=== PATIENT | male | born 1985 | race Caucasian/White ===

== ENCOUNTER 2017-02-19 21:51 | Inpatient (IN) | payer BC, OTHER ==
[~2017-02-19] VITALS: Ht 182.9 cm; Wt 81.6 kg
--- NOTE | 2017-02-20 03:55 | NUR ---
Admission note Pt is a 31 yo male, A+Ox4, presenting to [facility] for Opiate/Meth dependence. Pt is 6'0" in height and 180 LBS. in weight. Pt has NKA, is Full Code status and on Regular diet. Pt has Medical HX of Hypothyroidism and Bipolar disorder. Pt has no family medical/substance abuse HX to report. Pt has a primary care provider by the name of "Dr. Jane" and a primary psychiatrist by the name of "Dr. Hay". Pt has been using Heroin IV for 8 years, has reached a level of 1gm/daily, and last dose was 0.3gm on 02-20-17 @0300. Pt has been using Methamphetamine IV for 9 years, has reached a level of 0.5gm-1gm/daily, and last dose was 0.2gm on 02-19-17 @1500. Pt has been taking the following home medications: [place] 1200mg QAM, Synthroid 75mcg QAM, and last dose was taken 02-03-17 for both medications. Pt has previous HX of Detox/Rehab for 30 days @ [facility] in [place], [place] in 2016. This was the Pt's last time sober. Pt has been a cigarette smoker for 13 years and has reached a level of 20/daily. Pt states that he also "Vapes". Pt appears mildly intoxicated upon admission but stable. V/S WNL. No s/s of distress noted at this time. Respirations even and unlabored. Will continue to monitor.
[2017-02-20] MEDS ORDERED: ACETAMINOPHEN 325 MG TABLET PO PRN (04:45)
[2017-02-20] MEDS ORDERED: CLONIDINE HCL 0.1 MG TABLET PO PRN (04:45)
[2017-02-20] MEDS ORDERED: MAG HYDROX/AL HYDROX/SIMETH 30 ML LIQUID UDC PO PRN (04:45)
[2017-02-20] MEDS ORDERED: DICYCLOMINE HCL 20 MG TABLET PO PRN (04:45)
[2017-02-20] MEDS ORDERED: IBUPROFEN 400 MG TABLET PO PRN (04:45)
[2017-02-20] MEDS ORDERED: MAGNESIUM HYDROXIDE 30 ML LIQUID UDC PO PRN (04:45)
[2017-02-20] MEDS ORDERED: ONDANSETRON ODT 4 MG TAB.RAPDIS SL PRN (04:45)
[2017-02-20] MEDS ORDERED: BUPRENORPHINE HCL 2 MG TAB.SUBL SL PRN (04:45)
[2017-02-20] MEDS ORDERED: diphenhydrAMINE 50 MG CAPSULE PO PRN (04:45)
[2017-02-20] MEDS ORDERED: LOPERAMIDE HCL 2 MG CAPSULE PO PRN ×2 (04:45)
[2017-02-20 04:53] VITALS: BP 120/74
[2017-02-20 04:56] LABS: *AMPHETAMINE, URINE POSITIVE (NEGATIVE); *BARBITURATE, URINE NEGATIVE (NEGATIVE); *CANNABINOID, URINE NEGATIVE (NEGATIVE); *COCCAINE, URINE NEGATIVE (NEGATIVE); *OPIATE, URINE POSITIVE (NEGATIVE); *PHENCYCLIDINE SCREEN,URINE NEGATIVE (NEGATIVE)
[2017-02-20] MEDS ORDERED: LITH300C2 PO (06:25)
[2017-02-20] MEDS ORDERED: LEVO75TA PO (06:25)
[2017-02-20] MEDS ORDERED: CHOL400T41 PO (06:35)
[2017-02-20] MEDS ORDERED: MULT-1176 PO (06:35)
[2017-02-20] MEDS ORDERED: [UNRECOGNIZED DRUG - CODE] TP (06:35)
[2017-02-20] MEDS ORDERED: [UNRECOGNIZED DRUG - CODE] TP (06:35)
[2017-02-20] MEDS ORDERED: [UNRECOGNIZED DRUG - CODE] TP (06:35)
[2017-02-20] MEDS ORDERED: IBUP-66 PO (06:35)
[2017-02-20] MEDS ORDERED: [UNRECOGNIZED DRUG - CODE] MC (06:35)
--- NOTE | 2017-02-20 07:24 | NUR ---
End of shift note Pt is a 31 yo male, A+Ox4, presenting to [facility] for Opiate/Meth dependence. Pt is 6'0" in height and 180 LBS. in weight. Pt has NKA, is Full Code status and on Regular diet. Pt has Medical HX of Hypothyroidism and Bipolar disorder. Pt has no family medical/substance abuse HX to report. Pt has a primary care provider by the name of "Dr. Jane" and a primary psychiatrist by the name of "Dr. Hay". Pt has been using Heroin IV for 8 years, has reached a level of 1gm/daily, and last dose was 0.3gm on 02-20-17 @0300. Pt has been using Methamphetamine IV for 9 years, has reached a level of 0.5gm-1gm/daily, and last dose was 0.2gm on 02-19-17 @1500. Pt has been taking the following home medications: [place] 1200mg QAM, Synthroid 75mcg QAM, and last dose was taken 02-03-17 for both medications. Pt has previous HX of Detox/Rehab for 30 days @ [facility] in [place], [place] in 2016. This was the Pt's last time sober. Pt has been a cigarette smoker for 13 years and has reached a level of 20/daily. Pt states that he also "Vapes". Pt did not sleep since admission. Last COWS: 1 @0500. No s/s of distress noted at this time. Respirations even and unlabored. Will continue to monitor.
[2017-02-20 08:00] VITALS: BP 109/67
--- NOTE | 2017-02-20 08:15 | NUR ---
START OF SHIFT: RECEIVED PT A/O X 4. PT STATES HE SLEPT VERY LITTLE LAST NIGHT HE WAS ADMITTED IN THE MIDDLE OF THE NIGHT. HE STATES HE IS NOT FEELING TOO BAD OF YET. PPD PLANTED TO [facility]. COWS 6. HE REPORTS SOME MILD BODY ACHES,SLIGHT CHILLS AND RESTLESSNESS. HE ALSO REPORTS FATIGUE. NO TAPER ORDERED OF YET. MD TO ASSESS PT THIS AM. WILL CONTINUE TO MONITOR AND PROVIDE SAFE AND SUPPORTIVE ENVIRONMENT.
[2017-02-20 08:18] LABS: BASOPHILS % (AUTO) 0.4 % (0.0-2.0); EOSINOPHILS # (AUTO) 0.1 K/uL (0.0-0.7); EOSINOPHILS % (AUTO) 0.6 % (0.0-7.0); HEMATOCRIT 45.4 % (40.0-50.0); HEMOGLOBIN 15.3 g/dL (14.0-18.0); LYMPHOCYTES # (AUTO) 0.9 K/uL (0.8-4.8); LYMPHOCYTES % (AUTO) 7.6 % (20.5-51.5); MEAN CORPUSCULAR HEMOGLOBIN 30.6 uug (27.0-31.0); MEAN CORPUSCULAR HGB CONC 34 g/dL (32.0-37.0); MONOCYTES # (AUTO) 0.7 K/uL (0.1-1.30); MONOCYTES % (AUTO) 6.1 % (0.0-11.0); NEUTROPHILS # (AUTO) 10.2 K/uL (1.8-8.9); NEUTROPHILS % (AUTO) 85.3 % (38.5-71.5); PLATELET COUNT (AUTO) 281 K/uL (150-450); RED BLOOD CELL COUNT(AUTO) 4.98 MIL/uL (4.70-6.10); RED CELL DISTRIBUTION WIDTH 11.4 % (11.5-14.5); WHITE BLOOD COUNT (AUTO) 11.9 K/uL (4.0-11.2)
[2017-02-20 08:45] LABS: ETHANOL < 3 MG/DL (0-0)
[2017-02-20 08:52] LABS: ALANINE AMINOTRANSFERASE 33 U/L (16-63); ALBUMIN 3.8 g/dL (3.4-5.0); ALKALINE PHOSPHATASE 72 U/L (50-136); ASPARTATE AMINOTRANSFERASE 81 U/L (15-37); BILIRUBIN,TOTAL 0.5 mg/dL (0.2-1.0); CARBON DIOXIDE 31 mmol/L (21-32); CHLORIDE 99 mmol/L (98-107); CREATININE 1.3 mg/dL (0.6-1.3); GFR 65 mL/min (>60); GLUCOSE 96 mg/dL (74-106); MAGNESIUM 1.8 mg/dL (1.8-2.4); POTASSIUM 4.1 mmol/L (3.5-5.1); SODIUM SERUM 137 mmol/L (136-145); TOTAL PROTEIN, SERUM 7.7 g/dL (6.4-8.2); UREA NITROGEN, BLOOD 7 mg/dL (7-18)
[2017-02-20] MEDS ORDERED: TUBERCULIN,PURIF.PROT.DERIV. 5 TU/0.1 ML TEST ID ONE (09:00)
[2017-02-20] MEDS: MULTIVITAMINS,THERAPEUTIC TABLET PO SCH (09:03)
[2017-02-20 09:05] LABS: THYROID STIMULATING HORMONE 3.277 mIU/mL (0.358-3.740)
[2017-02-20 09:19] LABS: HIV-1 p24 ANTIGEN NON REACTIVE (NONREACTIVE); HIV-1/2 ANTIBODY NON REACTIVE (NONREACTIVE)
[2017-02-20 10:14] LABS: BAND % (MANUAL) 6 % (0-10); BASOPHILS % (MANUAL) 1 % (0-2); LYMPHOCYTES % (MANUAL) 7 % (20-40); MONOCYTES % (MANUAL) 8 % (2-10); NEUTROPHILS % (MANUAL) 78 % (42-75)
[2017-02-20 10:15] LABS: PLATELET ESTIMATE ADEQUATE
[2017-02-20 12:00] VITALS: BP 104/55
[2017-02-20] MEDS: LITHIUM CARBONATE 300 MG CAPSULE PO SCH ×2 (12:24→20:20)
[2017-02-20 16:00] VITALS: BP 110/74
--- NOTE | 2017-02-20 17:47 | NUR ---
COWS DEFERRED PT IS SLEEPING/ RESPIRATIONS EVEN AND UNLABORED. BED LOCKED AND IN LOWEST POSITION. CALL BALL IN REACH. WILL CONTINUE TO MONITOR.
--- NOTE | 2017-02-20 18:46 | NUR ---
END OF SHIFT: PT CONTINUES ON PRNS. HE REPORTED FATIGUE AND DENIED S/S OF W/D IN AM. NOON COWS 5. HE SLEPT MOST OF SHIFT AND NO PRNS GIVEN. PPD PLANTED TO [facility]. ENCOURAGED INCREASED FLUIDS TODAY AND REST. WILL PASS SHIFT REPORT TO ONCOMING NURSE.
[2017-02-20 20:00] VITALS: BP 114/78
--- NOTE | 2017-02-20 20:00 | NUR ---
1999 Patient received sleeping soundly in -like position of comfort. Patient aroused for nurse assess and vital signs. Patient responds to nurse's greeting and introduction with soft, slightly delayed, " Hi, I feel okay" Patient's color is pink and his skin is warm, dry and and intact. Patient's lung sounds are clear bilaterally and active bowel sounds are noted x 4 abdominal Quads, per auscultation. Patient denies any pain or other discomforts and he offers no requests at this time. Vital signs are: 98-77-16 114/78, O2 Sat 100%, COWS 2. Fluids and small amounts of his regular dinner tray taken slowly. Patient can move all his extremities fully WNL, though slowly. Patient was admitted on 02/20/17 for: Heroin and Methamphetamine withdrawal and he is presently on PRN medications only. Patient is overall cooperative, though he presents a bit tired-looking and sleepy. He is verbally appropriate though affect flat, slightly withdrawn presently. Bed is locked and in lowest position, bed rails are up X 2 and call light within patient's easy reach.
[2017-02-21] VITALS: BP 110/72
[2017-02-21 04:00] VITALS: BP 112/72
--- NOTE | 2017-02-21 06:30 | NUR ---
0630 Patient slept a total of 10.5 hours and he had 1 void and no stools. Total intake was 500 ml p.o. No prn medications given this shift. V/SS afebrile, COWS 2. Patient is presently resting comfortably with eyes closed and respirations regular, unlabored at 14. Patient is in stable condition at this time.
[2017-02-21 08:00] VITALS: BP 113/74
--- NOTE | 2017-02-21 08:00 | NUR ---
START OF SHIFT RECEIVED PT AOX4. PT STATES HE SLEPT ALL DAY YESTERDAY AND ALL LAST NIGHT AND FEELS RESTED NOW. COWS 3 THIS AM. PT APPEARS WITH BLUNTED AFFECT AND SUBDUED MOOD. HE REPORTS HE HAS BEEN SWEATY AND HAS MILD ANXIETY. ENCOURAGED GROUP ACTIVITY TODAY TO DECREASE ANXIOUSNESS. NO PRNS GIVEN LAST NIGHT PER [facility]. WILL CONTINUE TO MONITOR PT AND PROVIDE SAFE AND SUPPORTIVE ENVIRONMENT.
[2017-02-21] MEDS: LITHIUM CARBONATE 300 MG CAPSULE PO SCH ×2 (09:29→21:49)
[2017-02-21] MEDS: MULTIVITAMINS,THERAPEUTIC TABLET PO SCH (09:29)
[2017-02-21] MEDS: PATIENT MAY USE OWN MED- MD OK TOP SCH ×4 (10:15)
[2017-02-21] MEDS: HYDROXYZINE PAMOATE 25 MG CAPSULE PO PRN (10:26)
[2017-02-21] MEDS: METHOCARBAMOL 750 MG TABLET PO PRN (10:26)
--- NOTE | 2017-02-21 10:37 | NUR ---
PRN CLONIDINE,VISTARIL,ROBAXIN AND BENTYL GIVEN FOR NEW S/S OF W/D WHICH INCLUDE MUSCLE ACHES,CHILLS,SWEATS AND STOMACH UPSET. WILL MONITOR EFFECTIVENESS
--- NOTE | 2017-02-21 11:39 | NUR ---
PT STATES PRN MEDS WERE EFFECTIVE IN REDUCING S/S OF W/D
[2017-02-21 12:00] VITALS: BP 116/74
[2017-02-21] MEDS: LEVOTHYROXINE SODIUM 75 MCG TABLET PO SCH (12:07)
[2017-02-21] MEDS: CHOLECALCIFEROL 400 UNITS TABLET PO SCH (12:08)
[2017-02-21 16:00] VITALS: BP 122/70
--- NOTE | 2017-02-21 18:43 | NUR ---
END OF SHIFT PT CONTINUES ON OBSERVATION WITH PRNS AVAILABLE FOR S/S OF W/D. HE WAS GIVEN PRN CLONIDINE, VISTARIL, ROBAXIN AND BENTYL THIS SHIFT FOR S/S OF W/D WITH EFFECTIVENESS. LAST COWS 3. PT ATTENDED GROUP TODAY AND SOCIALIZED WITH PEERS.PT VITALS REMAIN WNL. ENCOURAGED PT TO INFORM NURSING STAFF OF ANY DISCOMFORT. PT IS RESTING NOW. BED IN LOWEST POSITION AND CALL BALL IN REACH. WILL PASS REPORT TO NIGHT NURSE.
--- NOTE | 2017-02-21 19:45 | NUR ---
START OF SHIFT Received report from day shift nurse. Pt is lying in bed watching TV. He is a 31 yo male admitted to [facility] on 02/20 for opiate dependence with a h/o methamphetamine use. He is A&O x4 and ambulatory. NKA, full code status, and on a regular diet. He has a PMH of hypothyroidism and bipolar. On admission he admitted to using heroin 1 gram per day for 8 years and methamphetamine 0.5-1 gram per day for 9 years. He is ordered PRN medications for the management of withdrawal symptoms. He reports runny nose and hot flashes. Fall precautions ordered. Bed is down with call light in reach.
[2017-02-21 20:00] VITALS: BP 124/69
--- NOTE | 2017-02-21 20:08 | NUR ---
CLARIFICATION OF ORDERS Contacted Dr. Reddy for clarification of Inland level orders. Per Dr. Reddy, Inland level is to be drawn 02/23/17 at 0800.
--- NOTE | 2017-02-21 21:15 | NUR ---
PRN Ativan administration Pt is noted to be sweating and with hand tremors. He reports that he "feels uneasy". CIWA score 7. PRN Ativan administered Addendum: 02/22/17 at 0108 by JULIAN CRUZ RN Disregard note. Incorrect patient.
--- NOTE | 2017-02-21 21:50 | NUR ---
PRN Benadryl Pt c/o inability to sleep. PRN Benadryl administered.
[2017-02-22] VITALS: BP 120/66
[2017-02-22] MEDS: METHOCARBAMOL 750 MG TABLET PO PRN (02:19)
[2017-02-22] MEDS: HYDROXYZINE PAMOATE 25 MG CAPSULE PO PRN ×2 (02:20→21:41)
--- NOTE | 2017-02-22 02:20 | NUR ---
PRN Robaxin and Vistaril Pt reports bilateral shoulder aches 5/10, feeling anxious, restless, and unable to fall asleep. He states, "it's withdrawals". COWS score is 6. PRN Robaxin and Vistaril administered.
--- NOTE | 2017-02-22 03:30 | NUR ---
PRN Robaxin and Vistaril reassessment PRN Vistaril effective. Pt reports feeling more relaxed and less anxious but sill unable to fall asleep due to continued shoulder pain. PRN Robaxin mildly effective.
--- NOTE | 2017-02-22 03:50 | NUR ---
PRN Motrin administration Pt reports continued right shoulder pain. Robaxin provided only some relief. PRN Motrin administered.
[2017-02-22 04:00] VITALS: BP 120/74
--- NOTE | 2017-02-22 04:50 | NUR ---
PRN Ibuprofen reassessment PRN Ibuprofen effective. Pt is lying in bed resting comfortably with eyes closed. Respirations even and unlabored. Bed is down with call light in reach.
[2017-02-22] MEDS: LEVOTHYROXINE SODIUM 75 MCG TABLET PO SCH (06:58)
--- NOTE | 2017-02-22 07:13 | NUR ---
END OF SHIFT Report provided to day shift nurse. Pt is lying in bed watching TV. He is a 31 yo male admitted to [facility] on 02/20 for opiate dependence with a h/o methamphetamine use. He is A&O x4 and ambulatory. NKA, full code status, and on a regular diet. He has a PMH of hypothyroidism and bipolar. On admission he admitted to using heroin 1 gram per day for 8 years and methamphetamine 0.5-1 gram per day for 9 years. PRN medications ordered for management of withdrawals. Pt reported shoulder pain r/t withdrawals. PRN Benadryl, Robaxin, Vistaril and Ibuprofen administered. Last COWS 6. He drank 1500mL and slept for 3 hours. Fall precautions ordered. Bed is down with call light in reach.
[2017-02-22 08:00] VITALS: BP 117/62
--- NOTE | 2017-02-22 08:30 | NUR ---
START OF SHIFT: RECEIVED PT THIS AM AOX4. PT IN BED STATES HE DID NOT SLEEP WELL LAST NIGHT AND ONLY SLEPT ABOUT 3 HRS. PT GIVEN PT BENADRYL, ROBAXIN, IBUPROFEN AND VISTARIL LAST NIGHT BY NIGHT NURSE AND PT STATES HE FELT RELIEF AFTER. PT C/O RIGHT SHOULDER ACHES R/T W/D AND SLIGHT ANXIETY. COWS 3. PT CONTINUES ON PRNS..ENCOURAGED GROUP ACTIVITY TODAY AND ENCOURAGED PT TO NOTIFY NURSE IF MUSCLE ACHES WORSEN. WILL CONTINUE TO MONITOR.
[2017-02-22] MEDS: MULTIVITAMINS,THERAPEUTIC TABLET PO SCH (08:50)
[2017-02-22] MEDS: PATIENT MAY USE OWN MED- MD OK TOP SCH ×4 (08:50→08:51)
[2017-02-22] MEDS: CHOLECALCIFEROL 400 UNITS TABLET PO SCH (08:50)
[2017-02-22] MEDS: LITHIUM CARBONATE 300 MG CAPSULE PO SCH ×2 (08:50→21:16)
[2017-02-22 12:00] VITALS: BP 129/76
[2017-02-22 16:00] VITALS: BP 124/84
--- NOTE | 2017-02-22 18:36 | NUR ---
END OF SHIFT PT CONTINUES ON OBSERVATION WITH PRNS AVAILABLE FOR S/S OF W/D. NO PRNS NEEDED THIS SHIFT. LAST COWS 1. PT ATTENDED GROUP TODAY AND SOCIALIZED WITH PEERS. PT DC PLANNED FOR TOMORROW. UDS COLLECTED. ENCOURAGED PT TO INFORM NURSING STAFF OF ANY DISCOMFORT. PT IS RESTING NOW. ALL NEEDS MET. BED IN LOWEST POSITION AND CALL BALL IN REACH. WILL PASS REPORT TO NIGHT NURSE.
[2017-02-22] MEDS ORDERED: CLON0.1T14 PO (19:04)
[2017-02-22] MEDS ORDERED: DICY20TA28 PO (19:04)
[2017-02-22] MEDS ORDERED: METH-33 PO (19:04)
[2017-02-22] MEDS ORDERED: HYDR-3895 PO (19:04)
[2017-02-22 20:00] VITALS: BP 132/77
--- NOTE | 2017-02-22 20:00 | NUR ---
START OF SHIFT Received report from day shift nurse. Pt is lying in bed watching TV. He is a 31 yo male admitted to [facility] on 02/20 for opiate dependence with a h/o methamphetamine use. He is A&O x4 and ambulatory. NKA, full code status, and on a regular diet. He has a PMH of hypothyroidism and bipolar. On admission he admitted to using heroin 1 gram per day for 8 years and methamphetamine 0.5-1 gram per day for 9 years. He is ordered PRN medications for the management of withdrawal symptoms and scheduled for discharge tomorrow. Minimal s/s of withdrawal noted. Pt states he feels ready for discharge. Fall precautions ordered. Bed is down with call light in reach.
[2017-02-22] MEDS ORDERED: TRAZODONE 50 MG TABLET PO PRN (21:30)
--- NOTE | 2017-02-22 21:45 | NUR ---
PRN Vistaril and Trazodone Pt c/o feeling anxious and unable to sleep. Benadryl administered last night was not effective. Contacted Dr. Morrow. Orders received for Trazodone. PRN Vistaril and Trazodone administered.
[2017-02-22] MEDS ORDERED: TRAZODONE 50 MG TABLET ONE (21:47)
--- NOTE | 2017-02-22 22:45 | NUR ---
PRN Vistaril and Trazodone reassessment PRN Vistaril and Trazodone effective. Pt is lying in bed resting with eyes closed. Respirations even and unlabored.
--- NOTE | 2017-02-23 | NUR ---
0000 Vitals and COWS deferred Pt refused to be woken for 0000 Vitals. Respirations even and unlabored. Bed is down with call light in reach.
--- NOTE | 2017-02-23 04:00 | NUR ---
0400 Vitals and COWS deferred Pt refused to be woken for 0400 Vitals. Respirations even and unlabored. Bed is down with call light in reach.
[2017-02-23 04:06] LABS: HEPATITIS B CORE AB, IgM Negative (Negative); HEPATITIS B SURFACE AG Negative (Negative)
[2017-02-23] MEDS: LEVOTHYROXINE SODIUM 75 MCG TABLET PO SCH (06:58)
--- NOTE | 2017-02-23 07:10 | NUR ---
Start of shift note SBAR report rcv'd. Pt was admitted for observation of withdrawal from opiates and methamphetamine. Pt has a PMH of bipolar d/o and hypothyroidism. Pt was on PRN medication to manage his s/s of withdrawal. Pt is full code, on a regular diet and has NKA. Pt is currently sleeping in his bed. Bed is locked in a low position, call light within reach, side rails up x2.
[2017-02-23 08:00] VITALS: BP 98/56
[2017-02-23] MEDS: LITHIUM CARBONATE 300 MG CAPSULE PO SCH (08:38)
[2017-02-23] MEDS: PATIENT MAY USE OWN MED- MD OK TOP SCH ×4 (08:38→08:39)
[2017-02-23] MEDS: MULTIVITAMINS,THERAPEUTIC TABLET PO SCH (08:38)
[2017-02-23] MEDS: CHOLECALCIFEROL 400 UNITS TABLET PO SCH (08:38)
--- NOTE | 2017-02-23 10:40 | NUR ---
Discharge note Pt was admitted for opiate dependence. Pt had a COWS of 1. VS are WNL. LBM 02/22/17. Pt states that he feels ready for discharge. Denies SI/HI. Pt verbalized his understanding of the discharge instructions. Pt discharge instructions, prescriptions, medications and valuables and other belongings all returned to pt. Pt ID band removed, pt ambulated off of the unit with [employer], left facility via private vehicle for [facility].
[2017-02-23 13:01] LABS: *AMPHETAMINE, URINE NEGATIVE (NEGATIVE); *BARBITURATE, URINE NEGATIVE (NEGATIVE); *CANNABINOID, URINE NEGATIVE (NEGATIVE); *COCCAINE, URINE NEGATIVE (NEGATIVE); *OPIATE, URINE NEGATIVE (NEGATIVE); *PHENCYCLIDINE SCREEN,URINE NEGATIVE (NEGATIVE)
== END 2017-02-23 10:40 | disposition other institution (70) | DRG 895 ==
LOC: SRC 02-20 02:26
PROVIDERS: ADMIT Internal Medicine; ATTEND Internal Medicine
PROC: HZ2ZZZZ Detoxification Services for Substance Abuse Treatment (ICD-10-PCS; principal; 2017-02-20)
PROC: HZ41ZZZ Group Counseling for Substance Abuse Treatment, Behavioral (ICD-10-PCS; 2017-02-21)
PROC: HZ31ZZZ Individual Counseling for Substance Abuse Treatment, Behavioral (ICD-10-PCS; 2017-02-22)
DX: F11.23 Opioid dependence with withdrawal (principal); E03.9 Hypothyroidism, unspecified; Z79.899 Other long term (current) drug therapy; F31.9 Bipolar disorder, unspecified; F17.210 Nicotine dependence, cigarettes, uncomplicated; F15.90 Other stimulant use, unspecified, uncomplicated
CPT/HCPCS: 36415; 70030-TC; 80307; 80324; 80361; 83735; 84443; 85025; 86580; 86705; 87340; 87806; A4663; G6040-TC; Q0163